=== PATIENT | female | born 1950 | race African-American/Black ===

== ENCOUNTER → 2019-06-03 | Outpatient (CLI) | payer OTHER ==
[2019-06-03 08:25] LABS: HEMATOCRIT 39.6 % (37.0-47.0); MCHC 32.8 g/dL (28.0-37.0); MCV 88.3 fL (80.0-100.0); RBC 4.49 mil/uL (4.20-5.00); RDW 15.2 % (10.5-14.5); WBC 5.5 thou/uL (4.0-11.0)
[2019-06-03 08:40] LABS: ALBUMIN 3.6 g/dL (3.4-5.0); CALCIUM 9.5 mg/dL (8.5-10.1); CREATININE 0.9 mg/dL (0.6-1.0); TOTAL BILIRUBIN 0.4 mg/dL (<0.1-1.0); TOTAL PROTEIN 8.4 g/dL (6.4-8.2)
== END ==
LOC: CAT 07:49
PROVIDERS: Internal Medicine Cardiovascular Disease
DX: I25.10 Atherosclerotic heart disease of native coronary artery without angina pectoris (principal); J43.9 Emphysema, unspecified; M47.815 Spondylosis without myelopathy or radiculopathy, thoracolumbar region; K80.20 Calculus of gallbladder without cholecystitis without obstruction; I48.91 Unspecified atrial fibrillation